=== PATIENT | female | born 1940 | race Caucasian/White ===

== ENCOUNTER → 2019-07-08 | Outpatient (CLI) | payer MEDICARE, OTHER | LOC: MC.RAD 07:30 | DX: Z12.31 Encounter for screening mammogram for malignant neoplasm of breast (principal) ==

== ENCOUNTER 2019-08-30 14:45 | Outpatient (CLI) | payer MEDICARE ==
[~2019-08-30] VITALS: Ht 157.5 cm; Wt 51.0 kg
[2019-08-30 15:00] VITALS: BP 104/51; PULSE 68; TEMP 97.9
[2019-08-30] MEDS ORDERED: LIPITOR 10MG10 MG PO (15:08)
[2019-08-30] MEDS ORDERED: VITAMIND3 5000 PO (15:09)
[2019-08-30] MEDS ORDERED: SYNTHROID0.075 MG/T PO (15:09)
[2019-08-30] MEDS ORDERED: PRESERVISION1 SGL PO (15:10)
== END 2019-08-30 16:01 | disposition home or self-care (01) ==
LOC: EUO 14:45
DX: M81.0 Age-related osteoporosis without current pathological fracture (principal)
CPT/HCPCS: J3489

== ENCOUNTER → 2020-08-17 | Outpatient (CLI) | payer MEDICARE ==
[~2020-08-17] MED LIST: LIPITOR 10MG10 MG PO; PRESERVISION1 SGL PO; SYNTHROID0.075 MG/T PO; VITAMIND3 5000 PO
== END ==
LOC: MC.RAD 09:30
DX: Z12.31 Encounter for screening mammogram for malignant neoplasm of breast (principal)

== ENCOUNTER 2020-12-06 14:43 | Outpatient (CLI) | payer MEDICARE ==
[~2020-12-06] VITALS: Ht 157.5 cm; Wt 54.3 kg
[2020-12-06 15:00] VITALS: BP 111/62; PULSE 62; TEMP 97.4
== END 2020-12-06 15:45 | disposition home or self-care (01) ==
LOC: EUO 14:43
DX: M81.0 Age-related osteoporosis without current pathological fracture (principal)
CPT/HCPCS: J3489

== ENCOUNTER → 2021-08-20 | Outpatient (CLI) | payer MEDICARE | LOC: MC.RAD 10:08 | DX: Z12.31 Encounter for screening mammogram for malignant neoplasm of breast (principal); Z80.3 Family history of malignant neoplasm of breast ==

== ENCOUNTER → 2022-03-08 | Outpatient (CLI) | payer MEDICARE | LOC: COL.RAD 07:29 | DX: R16.0 Hepatomegaly, not elsewhere classified (principal); R10.84 Generalized abdominal pain ==

== ENCOUNTER → 2023-10-16 | Outpatient (CLI) | payer OTHER ==
[~2023-10-16] MED LIST changes: +NEXIUM 40MG40 MG PO; +SPIRIVA RE2.5 MCG/Ac IH; +SYNTHROID0.05 MG/TA PO
== END ==
LOC: COL.RAD 12:21
DX: M79.89 Other specified soft tissue disorders (principal)